=== PATIENT | female | born 1990 | race African-American/Black ===

== ENCOUNTER 2022-11-15 17:51 | Emergency (ER) | payer MEDICAID ==
[~2022-11-15] VITALS: Ht 172.7 cm; Wt 105.0 kg
[2022-11-15 18:26] VITALS: BP 160/99
[2022-11-15] MEDS ORDERED: ACETAMINOPHEN 325MG TABLET PO ONE (19:30)
[2022-11-15] MEDS ORDERED: T3 PO (20:19)
== END 2022-11-15 20:33 | disposition home or self-care (01) ==
LOC: ER 17:51
DX: M54.59 Other low back pain (principal)
CPT/HCPCS: 72100; 99283